=== PATIENT | male | born 1975 | race Caucasian/White ===

== ENCOUNTER 2019-12-07 13:47 | Emergency (ER) | payer MEDICARE ==
[2019-12-07] MEDS ORDERED: ASPIRIN 81 MG TABLET, CHEWABLE PO ONE (14:00)
--- NOTE | 2019-12-07 14:07 | ER Document Report ---
ED Medical Screen (RME) - General Chief Complaint: Chest Pain Stated Complaint: CHEST PAIN Time Seen by Provider: 12/07/19 13:54 Primary Care Provider: ROBEL GIL [Primary Care Provider] - Follow up as needed Mode of Arrival: Wheelchair Information source: Patient Notes: 44-year-old male presented to ED for chest pain coming in waves. He states there is a 5 out of 5. There is been going on for about an hour. He states he does smoke a pack a day drinks weekly does not do any drugs works for [employer] lives with his ex-. He does have a history of coronary artery disease and high blood pressure. He is alert oriented respirations regular nonlabored speaking in full sentences. He states the pain is coming in waves right now going up into his left shoulder. Patient is very anxious stating he feels like he is going to go out. His pulse is between 78 -86 blood pressure is 128 79 O2 sats 100%. Apical heart rate is very regular. I have greeted and performed a rapid initial assessment of this patient. A comprehensive ED assessment and evaluation of the patient, analysis of test results and completion of medical decision making process will be conducted by an additional ED providers. - Related Data Allergies/Adverse Reactions: dextromethorphan HBr [From Sudafed Cough] Allergy (Verified 05/11/13 12:33) guaifenesin [From Sudafed Cough] Allergy (Verified 05/11/13 12:33) Penicillins Allergy (Verified 05/11/13 12:33) pseudoephedrine [From Sudafed Cough] Allergy (Verified 05/11/13 12:33) Past Medical History - Past Medical History Cardiac Medical History: Reports: Hx Hypertension - Immunizations Hx Diphtheria, Pertussis, Tetanus Vaccination: Yes - 5 years ago Physical Exam - Vital signs Vitals: Temp Pulse Resp BP Pulse Ox 98.3 F 81 19 139/102 H 100 12/07/19 13:56 12/07/19 13:56 12/07/19 13:56 12/07/19 13:56 12/07/19 13:56 Course - Vital Signs Vital signs: Temp Pulse Resp BP Pulse Ox 98.3 F 81 19 139/102 H 100 12/07/19 13:56 12/07/19 13:56 12/07/19 13:56 12/07/19 13:56 12/07/19 13:56 Doctor's Discharge - Discharge Referrals: LOCALMD,NO [Primary Care Provider] - Follow up as needed
[2019-12-07] MEDS ORDERED: KETOROLAC TROMETHAMINE INJ/PF 30 MG/1 ML SDV IV ONE (14:20)
[2019-12-07] MEDS ORDERED: LORAZEPAM INJ 2 MG/1 ML VIAL IV ONE (14:21)
[2019-12-07] MEDS ORDERED: NORMAL SALINE 1000 ML 1,000 ML IV ONE (14:24)
[2019-12-07 14:28] LABS: ABSOLUTE BASOPHILS # (AUTO) 0.1 10^3/uL (0.0-0.2); ABSOLUTE EOSINOPHILS # (AUTO) 0.2 10^3/uL (0.0-0.6); ABSOLUTE LYMPHOCYTES (AUTO) 2.2 10^3/uL (0.5-4.7); ABSOLUTE NEUT (AUTO) 8.7 10^3/uL (1.7-8.2); EOSINOPHILS % (AUTO) 1.7 % (0-6); HEMATOCRIT 39.7 % (37.9-51.0); HEMOGLOBIN 13.6 g/dL (13.5-17.0); LYMPHOCYTES % (AUTO) 18.3 % (13-45); MEAN CORPUSCULAR HEMOGLOBIN 28.3 pg (27.0-33.4); MEAN CORPUSCULAR HGB CONC 34.3 g/dL (32.0-36.0); MEAN CORPUSCULAR VOLUME 82 fl (80-97); MONOCYTES % (AUTO) 8.3 % (3-13); PLATELET COUNT 255 10^3/uL (150-450); RED BLOOD COUNT 4.82 10^6/uL (4.35-5.55); RED CELL DISTRIBUTION WIDTH 14.7 % (11.5-14.0); SEGMENTED NEUTROPHILS % (AUTO) 70.7 % (42-78); TOTAL CELLS COUNTED % (AUTO) 100 %; WHITE BLOOD COUNT 12.3 10^3/uL (4.0-10.5)
--- NOTE | 2019-12-07 14:43 | ER Document Report ---
Entered by [facility] CASTELAN SCRIBE 12/07/19 [id number] Acting as scribe for:PHIL CIFUENTES MD ED General - General Chief Complaint: Chest Pain Stated Complaint: CHEST PAIN Time Seen by Provider: 12/07/19 13:54 Primary Care Provider: ROBEL GIL [NO LOCAL MD] - Follow up as needed Mode of Arrival: Wheelchair Information source: Patient Notes: This 44 year old male patient presents to the emergency department today with complaints of chest pain with associated dizziness and feeling like he couldn't breathe. Patient states that he was riding in a car when his symptoms began. Patient has been worked up multiple times in the past for chest pain but he states that he has never had symptoms like this before. Patient is bipolar and appears anxious today. - Related Data Allergies/Adverse Reactions: dextromethorphan HBr [From Sudafed Cough] Allergy (Verified 05/11/13 12:33) guaifenesin [From Sudafed Cough] Allergy (Verified 05/11/13 12:33) Penicillins Allergy (Verified 05/11/13 12:33) pseudoephedrine [From Sudafed Cough] Allergy (Verified 05/11/13 12:33) Past Medical History - General Information source: Patient - Social History Smoking Status: Current Every Day Smoker Cigarette use (# per day): Yes Chew tobacco use (# tins/day): No Frequency of alcohol use: Occasional Drug Abuse: None Lives with: Family Family History: Reviewed & Not Pertinent - Past Medical History Cardiac Medical History: Reports: Hx Hypertension Surgical Hx: Negative - Immunizations Hx Diphtheria, Pertussis, Tetanus Vaccination: Yes - 5 years ago Hx Pneumococcal Vaccination: 05/11/13 Review of Systems - Review of Systems Constitutional: No symptoms reported EENT: No symptoms reported Cardiovascular: See HPI, Chest pain, Dizziness Respiratory: See HPI, Short of breath Gastrointestinal: No symptoms reported Genitourinary: No symptoms reported Male Genitourinary: No symptoms reported Musculoskeletal: No symptoms reported Skin: No symptoms reported Hematologic/Lymphatic: No symptoms reported Neurological/Psychological: No symptoms reported -: Yes All other systems reviewed and negative Physical Exam - Vital signs Vitals: Temp Pulse Resp BP Pulse Ox 98.3 F 81 19 139/102 H 100 12/07/19 13:56 12/07/19 13:56 12/07/19 13:56 12/07/19 13:56 12/07/19 13:56 - Notes Notes: Physical Exam: General: Alert, appears well. HEENT: Normocephalic. Atraumatic. PERRL. Extraocular movements intact. Oropharynx clear. Neck: Supple. Non-tender. Respiratory: No respiratory distress. Clear and equal breath sounds bilaterally. Reproducible chest pain, anterior chest wall tenderness to palpation. Cardiovascular: Regular rate and rhythm. Abdominal: Normal Inspection. Non-tender. No distension. Normal Bowel Sounds. Back: No gross abnormalities. Extremities: Moves all four extremities. Upper extremities: Normal inspection. Normal ROM. Lower extremities: Normal inspection. No edema. Normal ROM. Neurological: Normal cognition. AAOx4. Normal speech. Psychological: Normal affect. Normal Mood. Skin: Warm. Dry. Normal color. Course - Re-evaluation Re-evalutation: 12/07/19 16:59 EKG is normal. Chest x-ray is normal. D-dimer is undetectable. Cardiac enzymes undetectable. Lab work unremarkable. Urine drug screen does show interfering substances for amphetamine which could mean large amphetamine, or other interfering medications. Patient did feel better after the Toradol and the Ativan. I believe this is chest wall pain with anxiety. - Vital Signs Vital signs: Temp Pulse Resp BP Pulse Ox 98.4 F 78 16 147/127 H 99 12/07/19 14:06 12/07/19 14:06 12/07/19 15:01 12/07/19 15:00 12/07/19 15:01 - Laboratory Result Diagrams: 12/07/19 14:16 12/07/19 14:16 Laboratory results interpreted by me: 12/07/19 12/07/19 14:16 14:16 WBC 12.3 H RDW 14.7 H Absolute Neuts (auto) 8.7 H Sodium 135.0 L Carbon Dioxide 21 L Glucose 114 H - Diagnostic Test Radiology reviewed: Image reviewed, Reports reviewed - Chest x-ray does not show can significant changes. - EKG Interpretation by Me EKG shows normal: Sinus rhythm, Bruin, Intervals, QRS Complexes, ST-T Waves Rate: Normal - 87 Rhythm: NSR Discharge - Discharge Clinical Impression: Anxiety Chest pain Qualifiers: Chest pain type: unspecified Qualified Code(s): R07.9 - Chest pain, unspecified Condition: Stable Disposition: HOME, SELF-CARE Additional Instructions: Chest Pain of Unclear Cause The exact cause of your chest pain isn't clear. Fortunately, there is no evidence of a dangerous medical condition. Further testing may be required to find the source of the pain. Most often, we find that this pain is coming from the chest wall -- the muscles or rib joints in the chest. But chest pain can come from the lung and lung lining, the esophagus, the heart valves or heart lining, and even the stomach or gallbladder. Rest. Eat lightly until the pain is gone. We may prescribe medicine for pain and inflammation. You should call the physician immediately if the pain radiates to the shoulder, jaw or arms; if you start to run a fever or develop a cough; or if you develop shortness of breath, or other new or alarming symptoms. Anxiety The physician feels that some of your health problems are being caused by anxiety. Anxiety affects your health in many ways. Anxiety alone can cause palpitations, sweats, chest pains, abdominal pains, shortness of breath, and headaches. It contributes to ulcer disease, high blood pressure, irritable bowel syndrome, and has been shown to cause flare-ups of many other diseases. Anxiety is not a simple disorder to treat. If the anxiety is due to recent life stresses, you may simply need time to "work through" the changes. If the anxiety is due to an underlying unhappiness with yourself or due to psychiatric disturbance, professional help will be needed. Your physician can refer you for further help if needed. Anti-anxiety medication is occasionally given if the stress is acute or if you are having trouble sleeping. Chronic or frequent use of these medications is not a good idea because the body becomes reliant on it, preventing you from dealing with life's normal stresses. Your evaluation today did not show a cardiopulmonary cause for your chest discomfort, shortness of breath, or other symptoms. You do appear to have some chest wall tenderness, and probably had an anxiety attack making things worse. Stay on your regular medications. Take Tylenol and ibuprofen for chest pain. Follow-up with your primary care provider if not improving. RETURN TO THE EMERGENCY ROOM IF ANY NEW OR WORSENING SYMPTOMS. Referrals: LOCALMD,NO [NO LOCAL MD] - Follow up as needed I personally performed the services described in the documentation, reviewed and edited the documentation which was dictated to the scribe in my presence, and it accurately records my words and actions.
--- NOTE | 2019-12-07 14:48 | RADIOLOGY REPORT (SQ) ---
EXAM DESCRIPTION: CHEST 2 VIEWS IMAGES COMPLETED DATE/TIME: 12/07/2019 2:36 pm REASON FOR STUDY: chest pain in waves COMPARISON: None. TECHNIQUE: Frontal and lateral radiographic views of the chest acquired. NUMBER OF VIEWS: Two view. LIMITATIONS: None. FINDINGS: LUNGS AND PLEURA: No opacities, masses or pneumothorax. No pleural effusion. MEDIASTINUM AND HILAR STRUCTURES: No masses or contour abnormalities. HEART AND VASCULAR STRUCTURES: Heart normal size. No evidence for failure. BONES: No acute findings. HARDWARE: None in the chest. OTHER: No other significant finding. IMPRESSION: NO SIGNIFICANT RADIOGRAPHIC FINDING IN THE CHEST. TECHNICAL DOCUMENTATION: JOB ID: [id number] 2010 [employer]- All Rights Reserved Reading location - IP/workstation name: [email or web address]
[2019-12-07 14:50] LABS: ALBUMIN 4.5 g/dL (3.5-5.0); ALKALINE PHOSPHATASE 47 U/L (38-126); ANION GAP 8 (5-19); ASPARTATE AMINO TRANSFERASE 23 U/L (17-59); BILIRUBIN,TOTAL 0.7 mg/dL (0.2-1.3); BLOOD UREA NITROGEN 15 mg/dL (7-20); CALCIUM 9.6 mg/dL (8.4-10.2); CARBON DIOXIDE 21 mmol/L (22-30); CHLORIDE 106 mmol/L (98-107); CREATINE KINASE 74 U/L (55-170); GLUCOSE 114 mg/dL (75-110); POTASSIUM 3.8 mmol/L (3.6-5.0); TOTAL PROTEIN 7.5 g/dL (6.3-8.2)
[2019-12-07 15:02] LABS: NT PRO BNP 51 pg/mL (<125)
[2019-12-07 15:03] LABS: TROPONIN I < 0.012 ng/mL
[2019-12-07 15:47] LABS: APPEARANCE,URINE CLEAR; BILIRUBIN,URINE NEGATIVE (NEGATIVE); COLOR,URINE YELLOW; GLUCOSE, URINE NEGATIVE (NEGATIVE); KETONES,URINE NEGATIVE (NEGATIVE); LEUKOCYTE ESTERASE,URINE NEGATIVE (NEGATIVE); NITRITE,URINE NEGATIVE (NEGATIVE); PROTEIN,URINE NEGATIVE (NEGATIVE); URINE SPECIFIC GRAVITY 1.012; UROBILINOGEN,URINE NEGATIVE mg/dL (<2.0)
[2019-12-07 16:00] LABS: URINE BARBITURATES SCREEN NEGATIVE; URINE BENZODIAZEPINES SCREEN NEGATIVE; URINE COCAINE SCREEN NEGATIVE; URINE MARIJUANA (THC) SCREEN NEGATIVE; URINE METHADONE SCREEN NEGATIVE; URINE PHENCYCLIDINE SCREEN NEGATIVE
[2019-12-07 17:12] VITALS: BP 135/97
--- NOTE | 2019-12-08 01:06 | EKG REPORT ---
SEVERITY:- NORMAL ECG - SINUS RHYTHM : Confirmed by: Charlie Marsh 08-Dec-2019 01:05:41
== END 2019-12-07 17:17 | disposition home or self-care (01) ==
LOC: ER 13:47
DX: R07.9 Chest pain, unspecified (principal); F41.9 Anxiety disorder, unspecified; R42 Dizziness and giddiness; R06.02 Shortness of breath; F17.210 Nicotine dependence, cigarettes, uncomplicated; I10 Essential (primary) hypertension; Z88.8 Allergy status to other drugs, medicaments and biological substances; Z88.0 Allergy status to penicillin
CPT/HCPCS: 93005; 99285; 96361; 96374; 96375; 36415; 82550; 83690; 83735; 84443; 85025; 80053; 81001; 84484; 80307; 85379; 83880; 71046; 93010; A9270; J1885; J2060; J7030